=== PATIENT | female | born 1940 | race Caucasian/White ===

== ENCOUNTER → 2019-04-28 14:47 | Outpatient (BNVA) | payer MEDICARE, SELFPAY | PROVIDERS: Family Provider Family Medicine; PCP Family Medicine; Visit Provider Family Medicine | DX: J44.9 Chronic obstructive pulmonary disease, unspecified (principal); I10 Essential (primary) hypertension | CPT/HCPCS: 80053; 80061; 82044; 85025 ==

== ENCOUNTER 2019-05-27 11:09 | Outpatient (CLI) | payer MEDICARE, SELFPAY ==
--- NOTE | 2019-05-27 11:10 | MM_ITS ---
WS: [id number] SCREENING DIGITAL MAMMOGRAM WITH CAD HISTORY: SCREENING COMPARISON: 05/05/2018 and 05/03/2017 Bilateral CC and MLO views submitted. Computer aided detection analyzed. Breast composition: There are scattered areas of fibroglandular density. No suspicious masses, microc alcifications or architectural distortion. MM/[id number] IMPRESSION: BI-RADS: 1-Negative FOLLOW UP: 1 Year Follow-up
== END 2019-05-27 11:10 | disposition home or self-care (01) ==
LOC: RADSHAW 11:09
PROVIDERS: Family Provider Family Medicine; PCP Family Medicine; Visit Provider Family Medicine
DX: Z12.31 Encounter for screening mammogram for malignant neoplasm of breast (principal)
CPT/HCPCS: 77067

== ENCOUNTER → 2020-05-25 08:59 | Outpatient (BNVA) | payer MEDICARE, SELFPAY | PROVIDERS: Family Provider Family Medicine; PCP Family Medicine; Visit Provider Family Medicine | DX: I10 Essential (primary) hypertension (principal); J45.909 Unspecified asthma, uncomplicated; M85.851 Other specified disorders of bone density and structure, right thigh; M85.852 Other specified disorders of bone density and structure, left thigh; Z68.23 Body mass index [BMI] 23.0-23.9, adult | CPT/HCPCS: 80053; 80061; 82043; 85025 ==

== ENCOUNTER 2020-05-30 09:19 | Outpatient (CLI) | payer MEDICARE, SELFPAY ==
--- NOTE | 2020-05-30 09:24 | MM_ITS ---
WS: [id number] BILATERAL DIGITAL SCREENING MAMMOGRAPHY WITH CAD CLINICAL INFORMATION: SCREENING HISTORY: Screening mammogram. No current complaints. COMPARISON: May 27, 2019 TECHNIQUE: Bilateral CC and MLO views. FINDINGS: Scattered fibroglandular densities bilaterally. No suspicious focal mass, asymmetry, calcifications, or architectural distortion. No evidence of malignancy. MM/[place] [id number] IMPRESSION: BI-RADS: 1-Negative FOLLOW UP: 1 Year Follow-up Recommend return to annual screening mammography.
== END 2020-05-30 09:20 | disposition home or self-care (01) ==
LOC: RADSHAW 09:23
PROVIDERS: PCP Family Medicine; Visit Provider Family Medicine
DX: Z12.31 Encounter for screening mammogram for malignant neoplasm of breast (principal)
CPT/HCPCS: 77067

== ENCOUNTER → 2020-11-22 09:11 | Outpatient (BNVA) | payer MEDICARE, SELFPAY | PROVIDERS: PCP Family Medicine; Visit Provider Family Medicine | DX: I10 Essential (primary) hypertension (principal) | CPT/HCPCS: 80053 ==

== ENCOUNTER → 2021-05-15 09:31 | Outpatient (BNVA) | payer MEDICARE, SELFPAY | PROVIDERS: PCP Family Medicine; Visit Provider Family Medicine | DX: I10 Essential (primary) hypertension (principal); M85.851 Other specified disorders of bone density and structure, right thigh; M85.852 Other specified disorders of bone density and structure, left thigh; J45.909 Unspecified asthma, uncomplicated; L84 Corns and callosities; Z68.25 Body mass index [BMI] 25.0-25.9, adult | CPT/HCPCS: 80053; 80061; 82043; 82306; 85025 ==

== ENCOUNTER 2021-06-23 09:40 | Outpatient (CLI) | payer MEDICARE, SELFPAY ==
--- NOTE | 2021-06-23 09:50 | MM_ITS ---
WS: [id number] Bilateral screening 3D tomosynthesis digital mammogram, 06/23/2021 Clinical Data: SCREENING Comparison: 05/30/2020, 05/27/2019, 05/25/2018, 05/03/2017, 1 [place] 04/02/2016, 04/29/2015, 04/28/2014, 014, 04/24/2012 03/23/2011, 03/14/2010, 03/11/2009, 03/09/2008. Findings: The breast parenchymal pattern shows fat replacement. No spiculated masses or clustered calcification s are seen. There are no secondary signs of carcinoma. There is a mole marker in the upper outer quad rant of the right breast. MM/[place] [id number] Impression: 1. Negative bilateral mammogram unchanged. 2. Recommend annual screening mammograms. BIRADS: 1-Negative FOLLOW UP: 1 Year Follow-up The CAD food and beverage checker was used.
== END 2021-06-23 09:41 | disposition home or self-care (01) ==
PROVIDERS: PCP Family Medicine; Visit Provider Family Medicine
DX: Z12.31 Encounter for screening mammogram for malignant neoplasm of breast (principal)
CPT/HCPCS: 77063; 77067

== ENCOUNTER → 2021-07-31 09:09 | Outpatient (BNVA) | payer MEDICARE, SELFPAY | PROVIDERS: PCP Family Medicine; Visit Provider Family Medicine | DX: I10 Essential (primary) hypertension (principal) | CPT/HCPCS: 80053 ==

== ENCOUNTER → 2021-11-13 09:24 | Outpatient (BNVA) | payer MEDICARE, SELFPAY | PROVIDERS: PCP Family Medicine; Visit Provider Family Medicine | DX: E78.5 Hyperlipidemia, unspecified (principal); I10 Essential (primary) hypertension; M85.851 Other specified disorders of bone density and structure, right thigh; M85.852 Other specified disorders of bone density and structure, left thigh | CPT/HCPCS: 80053; 80061 ==

== ENCOUNTER → 2022-05-14 08:39 | Outpatient (BNVA) | payer MEDICARE, SELFPAY | PROVIDERS: PCP Family Medicine; Visit Provider Family Medicine | DX: I10 Essential (primary) hypertension (principal); E78.5 Hyperlipidemia, unspecified | CPT/HCPCS: 80053; 80061; 82043; 85025 ==

== ENCOUNTER 2022-05-24 13:38 | Outpatient (CLI) | payer MEDICARE, SELFPAY ==
--- NOTE | 2022-05-24 14:00 | XR_ITS ---
WS: [id number] SCREENING DEXA SCAN [email or web address] CLINICAL INFORMATION: post-menopausal COMPARISON: 2017 FINDINGS: The L1-L4 bone mineral density measures 1.107 g/cm2. This corresponds to a T score score of -0.6 and Z score of 1.5. Left femoral neck bone mineral density measures 0.723 g/cm2. This corresponds to a T score of -2.3 an d Z score of -0.1. Right femoral neck bone mineral density measures 0.756 g/cm2. This corresponds to a T score -2.0of an d Z score of 0.2. Mean femoral neck bone mineral density measures 0.740 g/cm2. This corresponds to a T score of -2.1 an d Z score of 0.1. XR/XR DEXA axial skeleton* [id number] IMPRESSION: Normal bone mineralization lumbar spine. Osteopenia femoral necks. Patient's FRAX calculated 10 year probability for major osteoporotic fracture i s 36.2 % and osteoporotic hip fracture is 17.6%. Bone mineral density in the lumbar spine has increased 14.1% since 2017. Bone mineral density in the femoral necks has increased 2.4% since 2017.
== END 2022-05-24 13:39 | disposition home or self-care (01) ==
LOC: RAD 13:40
PROVIDERS: PCP Family Medicine; Visit Provider Family Medicine
DX: Z78.0 Asymptomatic menopausal state (principal)
CPT/HCPCS: 77080

== ENCOUNTER 2022-06-25 11:50 | Outpatient (CLI) | payer MEDICARE, SELFPAY ==
--- NOTE | 2022-06-25 13:30 | MM_ITS ---
WS: [id number] BILATERAL 3D TOMOSYNTHESIS DIGITAL SCREENING MAMMOGRAPHY WITH CAD CLINICAL INFORMATION: screening mammgram HISTORY: Screening mammogram. No current complaints. COMPARISON: June 23, 2021 TECHNIQUE: Bilateral CC and MLO views. FINDINGS: Scattered fibroglandular densities bilaterally. No suspicious focal mass, asymmetry, calcifications, or architectural distortion. No evidence of malignancy. A few tiny incidental punctate calcifications . MM/[place] [id number] IMPRESSION: BI-RADS: 2-Benign FOLLOW UP: 1 Year Follow-up Recommend return to annual screening mammography.
== END 2022-06-25 11:51 | disposition home or self-care (01) ==
PROVIDERS: PCP Family Medicine; Visit Provider Family Medicine
DX: Z12.31 Encounter for screening mammogram for malignant neoplasm of breast (principal)
CPT/HCPCS: 77063; 77067